=== PATIENT | male | born 1960 | race Caucasian/White ===

== ENCOUNTER → 2020-04-29 | Outpatient (CLI) | payer OTHER ==
[~2020-04-29] MED LIST: NONE PER PT
== END | disposition home or self-care (01) ==
LOC: STAR 08:56
PROVIDERS: ATTEND Orthopaedic Surgery
DX: Z01.818 Encounter for other preprocedural examination (principal); M65.331 Trigger finger, right middle finger; R00.1 Bradycardia, unspecified; Z20.828 Contact with and (suspected) exposure to other viral communicable diseases
CPT/HCPCS: 87635; 93005

== ENCOUNTER 2020-05-05 05:55 | Day surgery (SDC) | payer OTHER ==
[~2020-05-05] VITALS: Ht 172.7 cm; Wt 66.7 kg
[2020-05-05] MEDS ORDERED: CHLORHEXIDINE 15 ML UDC ONE (06:11)
[2020-05-05] MEDS ORDERED: LACTATED RINGERS 1,000 ML IV SCH (06:30)
[2020-05-05] MEDS ORDERED: CHLORHEXIDINE 15 ML UDC MM ONE (06:30)
[2020-05-05] MEDS ORDERED: LIDOCAINE 1%, 20ML ONE (06:38)
[2020-05-05] MEDS ORDERED: BUPIVACAINE/PF 0.5% ONE (06:38)
[2020-05-05] MEDS ORDERED: PROPOFOL 10 MG/ML, 20ML ONE (07:47)
[2020-05-05] MEDS ORDERED: FENTANYL PF 100 MCG/2ML IV PRN (08:00)
[2020-05-05] MEDS ORDERED: ONDANSETRON 2MG/ML, 2ML IVPush PRN (08:00)
[2020-05-05] MEDS ORDERED: EPHEDRINE 50 MG/ML, 1ML IVPush PRN (08:00)
[2020-05-05] MEDS ORDERED: HYDROmorphone 1 MG/ML, 1ML INJ IVPush PRN (08:00)
[2020-05-05] MEDS ORDERED: OXYcodone 5 MG/5 ML ORAL.SOL UDC PO PRN (08:00)
[2020-05-05] MEDS ORDERED: PROMETHAZINE 25 MG/ML, 1ML IVPush PRN (08:00)
[2020-05-05] MEDS ORDERED: LABETALOL 5MG/ML, 20ML IV PRN (08:00)
[2020-05-05] MEDS ORDERED: ACETAMINOPHEN 325 MG TABLET PO PRN (08:00)
[2020-05-05] MEDS ORDERED: hydrALAzine 20 MG/ML, 1ML IV PRN (08:00)
[2020-05-05] MEDS ORDERED: KETOROLAC 30 MG/1 ML ONE (08:02)
[2020-05-05] MEDS ORDERED: CEFAZOLIN 1,000 MG ONE ×2 (08:02)
== END 2020-05-05 09:10 | disposition home or self-care (01) ==
LOC: OR 05:55
PROVIDERS: ATTEND Orthopaedic Surgery
DX: M65.331 Trigger finger, right middle finger (principal); M65.841 Other synovitis and tenosynovitis, right hand; G56.03 Carpal tunnel syndrome, bilateral upper limbs; Z87.891 Personal history of nicotine dependence; Z88.0 Allergy status to penicillin; Z82.61 Family history of arthritis; Z82.49 Family history of ischemic heart disease and other diseases of the circulatory system
CPT/HCPCS: 26055; J0690; J1885; J2704; J7120